=== PATIENT | male | born 1955 | race Caucasian/White ===

== ENCOUNTER → 2023-11-29 06:23 | Day surgery (SDC) | payer MEDICARE, SELFPAY ==
[2023-11-29 07:43] LABS: Glucose - Point of Care 103 mg/dl (70-99)
== END ==
LOC: GI 06:23
PROVIDERS: ATTENDING PHYSICIAN Internal Medicine Gastroenterology
DX: Z12.11 Encounter for screening for malignant neoplasm of colon (principal); Z86.010 Personal history of colon polyps; K57.30 Diverticulosis of large intestine without perforation or abscess without bleeding; K64.8 Other hemorrhoids; D12.2 Benign neoplasm of ascending colon
CPT/HCPCS: 45380; 88305; 82962